=== PATIENT | female | born 1990 | race Hispanic/Latino ===

== ENCOUNTER 2022-11-14 22:55 | Day surgery (SDC) | payer BC, OTHER ==
[2022-11-14 23:49] VITALS: BMI 38.9
[2022-11-15] MEDS ORDERED: hydrALAZINE 20 MG/ML VIAL SLOW IVP PRN (00:36)
== END 2022-11-15 01:02 | disposition home or self-care (01) ==
LOC: CSHLD/OP 22:55
PROVIDERS: ATTEND Family Medicine
DX: O99.513 Diseases of the respiratory system complicating pregnancy, third trimester (principal); J06.9 Acute upper respiratory infection, unspecified; R09.81 Nasal congestion; Z3A.29 29 weeks gestation of pregnancy; W19.XXXA Unspecified fall, initial encounter
CPT/HCPCS: 99282